=== PATIENT | female | born 1980 | race Caucasian/White ===

== ENCOUNTER 2018-09-30 15:22 | Emergency (ER) | payer SELFPAY ==
[~2018-09-30] VITALS: Ht 175.3 cm; Wt 97.7 kg
[2018-09-30 15:27] VITALS: BP 181/103; TEMP 98.8
[2018-09-30] MEDS ORDERED: NORCO 325 MG-51 TAB PO (16:59)
[2018-09-30] MEDS ORDERED: PREDNISONE20 MG PO (16:59)
[2018-09-30] MEDS ORDERED: VALIUM 2MG T2 MG/TAB PO (16:59)
[2018-09-30 17:09] VITALS: PULSE 75
== END 2018-09-30 17:10 | disposition home or self-care (01) ==
LOC: COL.ER 15:22
DX: M54.16 Radiculopathy, lumbar region (principal); Z90.89 Acquired absence of other organs
CPT/HCPCS: J7512

== ENCOUNTER → 2018-10-08 | Outpatient (CLI) | payer SELFPAY ==
[~2018-10-08] MED LIST: NORCO 325 MG-51 TAB PO; PREDNISONE20 MG PO; VALIUM 2MG T2 MG/TAB PO
== END ==
LOC: COL.RAD 14:45
DX: M51.17 Intervertebral disc disorders with radiculopathy, lumbosacral region (principal)

== ENCOUNTER 2019-01-03 11:43 | Emergency (ER) | payer SELFPAY ==
[~2019-01-03] VITALS: Ht 175.3 cm; Wt 90.9 kg
[2019-01-03 12:13] LABS: COLLECTION METHOD CLEAN CATCH
[2019-01-03 12:17] LABS: BASO % 0.3 % (0.0-2.0); EOS % 0.1 % (0-4.0); GRAN # 10.3 (1.4-6.5); GRAN % 88.3 % (42.2-75.2); HEMOGLOBIN 13.5 g/dl (12.5-16.0); LYMPH # 0.8 (1.2-3.4); MEAN CELL VOLUME 90 fl (80.0-100.0); MEAN CORPUSCULAR HEMOGLOBIN 30 pg (27.0-31.0); MEAN CORPUSCULAR HGB CONC 33 g/dl (33.0-37.0); MEAN PLATELET VOLUME 11.9 fl (7.4-10.4); MONO # 0.5 (0.1-0.6); MONO % 3.9 % (1.7-9.3); PLATELET COUNT 247 K/mm3 (130-400); RED BLOOD COUNT 4.55 M/mm3 (4.10-5.30); REDCELL DISTRIBUTION WIDTH-CV 12.4 % (11.5-14.5)
[2019-01-03 12:22] LABS: MUCOUS Present /lpf; PH 9 (5-8); URINE APPEARANCE Clear; URINE BACTERIA None Seen /hpf; URINE BILIRUBIN Negative (NEGATIVE); URINE BLOOD Negative (NEGATIVE); URINE COLOR Yellow; URINE GLUCOSE Negative (NEGATIVE); URINE KETONE Negative (NEGATIVE); URINE LEUKOCYTE ESTERASE Negative (NEGATIVE); URINE NITRATE Negative (NEGATIVE); URINE PROTEIN(semi-quant) Negative (NEGATIVE); URINE RBC 0-2 /hpf; URINE UROBILINOGEN Negative (NEGATIVE)
[2019-01-03 12:32] LABS: ALBUMIN 4.6 gm/dL (3.5-5.0); BILIRUBIN,TOTAL 0.3 mg/dL (0.0-1.0); C-REACTIVE PROTEIN 0.6 mg/dL (0.0-0.9); CALCIUM 9.3 mg/dL (8.4-10.2); CREATININE, serum 0.64 (0.52-1.25); POTASSIUM 3.7 mmol/L (3.4-5.0); TOTAL PROTEIN 8.2 gm/dL (6.4-8.2)
[2019-01-03] MEDS ORDERED: ZOFRAN ODT4 MG PO (13:36)
[2019-01-03 14:28] VITALS: BP 139/81; PULSE 77; TEMP 97.3
== END 2019-01-03 14:30 | disposition home or self-care (01) ==
LOC: COL.ER 11:43
PROVIDERS: Physician Assistant
DX: R11.10 Vomiting, unspecified (principal); R10.9 Unspecified abdominal pain
CPT/HCPCS: C9113; J1885; J2270; J2405; J7030

== ENCOUNTER 2023-05-06 15:21 | Emergency (ER) | payer SELFPAY ==
[~2023-05-06] VITALS: Ht 182.9 cm; Wt 100.0 kg
[~2023-05-06 15:21] MED LIST changes: +ZOFRAN ODT4 MG PO
[2023-05-06 15:34] VITALS: TEMP 97.8
[2023-05-06] MEDS ORDERED: PREDNISONE50 MG PO (16:15)
[2023-05-06] MEDS ORDERED: FLEXERIL 1010 MG/TAB PO (16:15)
[2023-05-06 16:25] VITALS: BP 133/97; PULSE 84
== END 2023-05-06 16:27 | disposition home or self-care (01) ==
LOC: COL.ER 15:21
DX: M54.42 Lumbago with sciatica, left side (principal); M54.41 Lumbago with sciatica, right side